=== PATIENT | male | born 1970 | race Caucasian/White ===

== ENCOUNTER 2019-08-09 15:47 | Emergency (ER) | payer MEDICAID ==
[~2019-08-09] VITALS: Ht 180.3 cm; Wt 95.3 kg
[2019-08-09 15:56] VITALS: BP_SYST 156
--- NOTE | 2019-08-09 16:15 | NUR ---
Patient to ER bed 3 to gown for evaluation. Side rails up.
--- NOTE | 2019-08-09 16:33 | NUR ---
Patient presents to ER C/O hypergylcemia. Patient A&Ox4, BIB , ambulatory to ER, afebrile, skin pink and warm, pain 6/10, denies N/V/D, bilat pulses noted. Patient states he has headache, nausea and decreased appetite, difficulty sleeping and bilat lower leg pain. Patient has Hx: DM, HTN, Kidney CA
--- NOTE | 2019-08-09 16:35 | NUR ---
ER Dr. Ramos at bedside examining patient.
[2019-08-09] MEDS ORDERED: NACL 0.9% 1,000 ML IV ONE (16:45)
[2019-08-09] MEDS ORDERED: KETOROLAC TROMETHAMINE 30 MG VIAL IVP ONE (16:45)
[2019-08-09] MEDS ORDERED: METOCLOPRAMIDE HCL 10 MG/2 ML VIAL IVP ONE (16:45)
[2019-08-09 17:03] LABS: BASOPHILS % (AUTO) 0.6 % (0.0-2.0); EOSINOPHILS # (AUTO) 0.1 K/uL (0.0-0.4); EOSINOPHILS % (AUTO) 1.5 % (0.0-4.0); HEMATOCRIT 43.8 % (36-54); HEMOGLOBIN 14.6 g/dL (14.0-18.0); LYMPHOCYTES # (AUTO) 1.2 K/uL (1.0-5.5); LYMPHOCYTES % (AUTO) 24.7 % (20.5-51.5); MEAN CORPUSCULAR HEMOGLOBIN 28 pg (27-31); MEAN CORPUSCULAR HGB CONC 33 % (32-36); MEAN CORPUSCULAR VOLUME 84 fL (79.0-98.0); MONOCYTES # (AUTO) 0.4 K/uL (0.0-1.0); MONOCYTES % (AUTO) 7.8 % (1.7-9.3); NEUTROPHILS # (AUTO) 3.3 K/uL (1.8-7.7); NEUTROPHILS % (AUTO) 65.4 % (40.0-70.0); PLATELET COUNT (AUTO) 152 K/uL (130-430); RED BLOOD CELL COUNT(AUTO) 5.25 MIL/uL (4.2-6.2); RED CELL DISTRIBUTION WIDTH 12.9 % (9.0-15.0); WHITE BLOOD COUNT (AUTO) 5.1 K/uL (4.8-10.8)
[2019-08-09 17:14] LABS: CALCIUM 8.7 mg/dL (8.4-11.0); CREATININE 1.07 mg/dL (0.55-1.30); POTASSIUM 4.1 mmol/L (3.5-5.1)
[2019-08-09 18:20] VITALS: BP_SYST 156
--- NOTE | 2019-08-09 18:20 | NUR ---
Patient given written and verbal discharge instructions and verbalizes understanding. ER MD discussed with patient the results and treatment provided. Patient in stable condition. ID arm band removed. IV catheter removed intact and dressing applied, no active bleeding. Rx of Neurontin & Reglan given. Patient educated on pain management and to follow up with PMD. Pain Scale 2/10 tolerable for pt. Opportunity for questions provided and answered. Medication side effect fact sheet provided.
== END 2019-08-09 18:20 | disposition home or self-care (01) ==
LOC: SED 15:47
DX: E11.43 Type 2 diabetes mellitus with diabetic autonomic (poly)neuropathy (principal); K31.84 Gastroparesis; R51 Headache; R11.10 Vomiting, unspecified; I10 Essential (primary) hypertension; Z85.528 Personal history of other malignant neoplasm of kidney; Z85.89 Personal history of malignant neoplasm of other organs and systems
CPT/HCPCS: 36415; 80048; 82962; 85025; 96361; 96374; 96375; 99283; J1885; J2765; J7030